=== PATIENT | male | born 1975 | race Caucasian/White ===

== ENCOUNTER 2017-12-18 22:29 | Inpatient (IN) | payer OTHER ==
[~2017-12-18] VITALS: Ht 165.1 cm; Wt 71.2 kg
[2017-12-18 22:44] VITALS: BP 133/91
--- NOTE | 2017-12-18 23:00 | NUR ---
42/M CAME IN ED, C/O 9/10 ACHING/STIFFNESS/TIGHTNESS L ELBOW PAIN AND L FOOT PAIN, NONRADIATING, X2 DAYS. PT REPORTS WAKING UP WITH THE PAIN 2 DAYS AGO, DENIES TRAUMA. PT DENIES CP, SOB, N/V/D, DYSURIA. PT REPORTS NOT BEING ABLE TO FULLY EXTEND OR BEND L ARM. SLIGHT REDNESS AND SLIGHT SWELLING NOTED ON MEDIAL ASPECT OF L ELBOW AND ALSO ON L FOOT. PT DENIES MED HX, RX. NKA. ER MADE AWARE.
[2017-12-19] MEDS ORDERED: NACL 0.9% 2,000 ML IV ONE (00:31)
[2017-12-19] MEDS ORDERED: KETOROLAC 30 MG/ML VIAL IVP ONE ×2 (00:35→04:20)
[2017-12-19] MEDS ORDERED: cefTRIAXone 1,000 MG VIAL ONE (00:43)
[2017-12-19 00:50] LABS: BASOPHILS # (AUTO) 0.1 K/uL (0.00-0.22); BASOPHILS % (AUTO) 0.6 % (0.0-2.0); EOSINOPHILS # (AUTO) 0.2 K/uL (0-0.4); EOSINOPHILS % (AUTO) 1.3 % (0.0-4.0); HEMATOCRIT 39.9 % (36-52); HEMOGLOBIN 13.7 g/dL (12.0-18.0); LYMPHOCYTES # (AUTO) 2.4 K/uL (2.0-11.5); LYMPHOCYTES % (AUTO) 20.4 % (20.5-51.1); MEAN CORPUSCULAR HEMOGLOBIN 32 pg (27-31); MEAN CORPUSCULAR HGB CONC 34 g/dL (33-37); MEAN CORPUSCULAR VOLUME 92.7 fL (80-94); MONOCYTES # (AUTO) 1.7 K/uL (0.8-1.0); MONOCYTES % (AUTO) 14.6 % (1.7-9.3); NEUTROPHILS # (AUTO) 7.4 K/uL (1.8-7.7); NEUTROPHILS % (AUTO) 63.1 % (42.2-75.2); PLATELET COUNT (AUTO) 218 K/uL (140-450); RED CELL DISTRIBUTION WIDTH 13.1 % (11.6-13.7); WHITE BLOOD COUNT (AUTO) 11.7 K/uL (4.8-10.8)
--- NOTE | 2017-12-19 01:00 | NUR ---
PT RESTING IN BED, LABS DRAWN, MEDS GIVEN WITH EDUCATION. PT REPORTS 9/10 PAIN AT THIS TIME. VSS. ALL NEEDS MET AT THIS TIME.
[2017-12-19 01:09] LABS: CARBON DIOXIDE 27.7 mmol/L (21-32); POTASSIUM 3.7 mmol/L (3.5-5.1)
[2017-12-19 01:13] LABS: ALBUMIN 3.1 g/dL (3.4-5.0); TOTAL BILIRUBIN 0.8 mg/dL (0.0-1.0)
[2017-12-19 01:14] LABS: PROTHROMBIN TIME 11.6 secs (10.8-13.4)
--- NOTE | 2017-12-19 02:47 | NUR ---
PT RESTING IN BED, PT REPORTS 8/10 L ELBOW PAIN AT THIS TIME. VSS, RR EVEN AND UNLABORED. ALL NEEDS MET AT THIS TIME.
[2017-12-19] MEDS ORDERED: NACL 0.9% 1,000 ML IV ONE (04:20)
[2017-12-19] MEDS ORDERED: ONDANSETRON 4 MG/2 ML VIAL IVP PRN (04:25)
[2017-12-19] MEDS ORDERED: ACETAMINOPHEN 325 MG TAB PO PRN (04:25)
[2017-12-19] MEDS ORDERED: HYDROcodone/APAP 7.5/325 MG 1 TAB PO PRN (04:25)
--- NOTE | 2017-12-19 04:50 | NUR ---
Patient will be admitted to care of DR. JAIMES. Admited to TELE. Will go to room 104A. Belongings list completed. Report to HENRRY CEJA AT BEDSIDE.
--- NOTE | 2017-12-19 04:50 | NUR ---
ADMITTED PT FROM ER. AAOX4. DX: LEFT ELBOW CELLULITIS. NO C/O PAIN AT THIS TIME. NO RESP DISTRESS NOTED. IV TO RIGHT HAND #20G WITH 1L NS BOLUS, INFUSING WELL. ORIENTED PT TO ROOM. PT'S FAMILY AT BEDSIDE. SKIN INTACT. SAFETY PRECAUTION IN PLACE. CALL LIGHT WITHIN REACH.
[2017-12-19 04:55] LABS: CHOL/HDL RATIO 3.6 (1-4.5); FREE T4 (FREE THYROXINE) 1.05 ng/dL (0.76-1.46); MAGNESIUM 2.1 mg/dL (1.8-2.4); PHOSPHORUS 3.6 mg/dL (2.5-4.9); THYROID STIMULATING HORMONE 2.51 uIU/mL (0.34-3.74)
[2017-12-19] MEDS ORDERED: KETOROLAC 15 MG/ML VIAL IVP PRN (04:55)
[2017-12-19 05:00] VITALS: BP 119/73
--- NOTE | 2017-12-19 06:00 | NUR ---
PT SLEEPING. NO S/S OF PAIN. NO S/S OF RESP DISTRESS. FAMILY AT BEDSIDE. CALL LIGHT WITHIN REACH.
[2017-12-19] MEDS: NACL 0.9% 1,000 ML IV SCH (06:05)
--- NOTE | 2017-12-19 07:10 | NUR ---
ENDORSED PT TO DAY SHIFT NURSE. PT IN STABLE CONDITION.
--- NOTE | 2017-12-19 07:11 | NUR ---
RECEIVED PT FROM PM NURSE AT THE BEDSIDE FOR THE CONTUINITY OF CARE. PT LYING ON HIS BED, FAMILY AT THE BEDSIDE. HAS THE CELLULITIS ON THE LFT ELBOW AND LFT FOOT. STATES PAIN 3-4 AT THIS TIME. NO SIGN OF DISTRESS. INFORMED HIM TO USE CALL LIGHT FOR ANY HELP. PT ROMANIAN SPEAKING. PLACED CALL LIGHT WITHIN PT REACH. BED AT LOWER POSITION. WILL CONTINUE TO MONITOR PT.
[2017-12-19 07:16] LABS: BASOPHILS # (AUTO) 0.1 K/uL (0.00-0.22); BASOPHILS % (AUTO) 0.8 % (0.0-2.0); EOSINOPHILS # (AUTO) 0.2 K/uL (0-0.4); EOSINOPHILS % (AUTO) 2.5 % (0.0-4.0); HEMATOCRIT 35.6 % (36-52); HEMOGLOBIN 12.1 g/dL (12.0-18.0); LYMPHOCYTES # (AUTO) 2.5 K/uL (2.0-11.5); LYMPHOCYTES % (AUTO) 25.2 % (20.5-51.1); MEAN CORPUSCULAR HEMOGLOBIN 32 pg (27-31); MEAN CORPUSCULAR HGB CONC 34 g/dL (33-37); MONOCYTES # (AUTO) 1.6 K/uL (0.8-1.0); MONOCYTES % (AUTO) 15.7 % (1.7-9.3); NEUTROPHILS # (AUTO) 5.7 K/uL (1.8-7.7); NEUTROPHILS % (AUTO) 55.8 % (42.2-75.2); PLATELET COUNT (AUTO) 182 K/uL (140-450); RED BLOOD CELL COUNT(AUTO) 3.78 MIL/uL (4.20-6.10); RED CELL DISTRIBUTION WIDTH 13.6 % (11.6-13.7); WHITE BLOOD COUNT (AUTO) 10.1 K/uL (4.8-10.8)
[2017-12-19 08:00] VITALS: BP 114/76
[2017-12-19 08:36] LABS: ANION GAP 11.4 (8-16); CARBON DIOXIDE 24.5 mmol/L (21-32); CREATININE 0.8 mg/dL (0.7-1.3); POTASSIUM 3.9 mmol/L (3.5-5.1)
--- NOTE | 2017-12-19 09:00 | NUR ---
ADMINISTERED MEDS ORDERED. ADMINISTERED TRAMADOL FOR PAIN TO PT. STATES THAT PAIN LEVEL IS 7/10. FIXED THE IVF INFUSION. NO SIGN OF DISTRESS. PT HAVING BREAKFAST AT THE BEDSIDE. FAMILY PRESENT. PLACED CALL LIGHT WITHIN PT REACH. ASKED HIM TO PRESS CALL LIGHT FOR ANY HELP. VERBALIZED UNDERSTANDING OF TEACHING. WILL CONTINUE TO MONITOR PT.
[2017-12-19] MEDS: DOCUSATE SODIUM 100 MG GELCAP PO SCH ×2 (09:10→21:21)
--- NOTE | 2017-12-19 10:41 | NUR ---
PATIENT HAS BEEN SCREENED AND CATEGORIZED MODERATE NUTRITION RISK. PATIENT WILL BE SEEN WITHIN 3-5 DAYS OF ADMISSION. 12/21/17 -12/23/[address]
--- NOTE | 2017-12-19 11:15 | NUR ---
CHECKED ON PT. STATES HAS NO PIAN. URINE SAMPLE COLLECTED AND TAKEN TO THE LAB. WILL CONTINUE TO MONITOR PT.
--- NOTE | 2017-12-19 13:00 | NUR ---
CHECKED ON THE PT. SLEEPING AT THIS TIME. WILL CONTINUE TO MONITOR PT.
[2017-12-19 13:07] LABS: BARBITURATE, URINE NEG. ng/ml (NEG <=200); BENZODIAZEPINE, URINE NEG. ng/mL (NEG <=200); CANNABINOID, URINE NEG. ng/mL (NEG <=50); COCAINE, URINE NEG. ng/mL (NEG <=300); OPIATE, URINE NEG. ng/mL (NEG <=2000); PHENCYCLIDINE SCREEN,URINE NEG. ng/mL (NEG <=25)
[2017-12-19 13:15] LABS: BILIRUBIN,URINE NEGATIVE (NEGATIVE); BLOOD, URINE NEGATIVE (NEGATIVE); LEUKOCYTE ESTERASE ,URINE NEGATIVE (NEGATIVE); NITRITE, URINE NEGATIVE (NEGATIVE); PH,URINE 6.5 (5.0-9.0); UGLUCOSE NEGATIVE (NEGATIVE)
[2017-12-19 13:16] LABS: APPEARANCE,URINE CLEAR (CLEAR); COLOR,URINE YELLOW (YELLOW)
[2017-12-19 13:17] LABS: RBC,URINE NONE SEEN /HPF (0-5); WBC,URINE 0-5 (RARE) /HPF (0-5)
--- NOTE | 2017-12-19 16:00 | NUR ---
CHECKED ON PT. STATES THAT HE HAS THE PAIN OF 4-5 . ASKED IF WANTED TO TAKE MEDS FOR PAIN. ADMINISTERED NORCO TO THE PT. VS NORMAL. NO SIGN OF DISTRESS. FIXED THE IVF IN PT. NO SIGN OF DISTYRESS. ASKED PT TO USE CALL LIGHT FOR ANY HELP . WILL CONTINUE TO MONITOR THE PT.
--- NOTE | 2017-12-19 18:00 | NUR ---
CHECKED ON PT. FAMILY AT THE BEDSIDE. PT EATING FOOD. IVF INFUSING WELL. NO SIGN OF DISTRESS. INFORMED TO PRESS CALL LIGHT FOR HELP. WILL CONTINUE TO MONITOR PT.
--- NOTE | 2017-12-19 19:05 | NUR ---
ENDORSED PT TO PM NURSE AT THE BEDSIDE. PT IN STABLE CONDITION.
--- NOTE | 2017-12-19 19:06 | NUR ---
RECEIVED PT FROM DAY SHIFT NURSE ERYN-RN AT THE BEDSIDE. PT LYING ON HIS BED, FAMILY AT THE BEDSIDE. AOX4-WOLOF SPEAKING, ON ROOM AIR AND WITH IV RIGHT HAND 20G. HAS THE CELLULITIS ON THE LFT ELBOW AND LFT FOOT. DISCUSSED PLAN OF CARE AND PT VERBALIZED UNDERSTANDING. NO S/S OF RESPIRATORY OF DISTRESS OR DISCOMFORT. BED AT LOWEST POSITION, BED BREAKS ON, BOTH SIDE RAILS UP. BED SIDE TABLE AND CALL LIGHT ARE WITHIN REACH. WILL CONTINUE TO MONITOR.
[2017-12-19 20:00] VITALS: BP 121/78
--- NOTE | 2017-12-19 20:00 | NUR ---
VITAL SIGNS TAKEN AND TOLERATED WELL. NO S/S OF RESPIRATORY DISTRESS OR DISCOMFORT NOTED AT THIS TIME. WILL CONTINUE TO MONITOR.
--- NOTE | 2017-12-19 21:25 | NUR ---
SCHEDULED MEDICATION COLACE GIVEN AND TOLERATED WELL. NO S/S OF RESPIRATORY DISTRESS OR DISCOMFORT NOTED AT THIS TIME. WILL CONTINUE TO MONITOR.
--- NOTE | 2017-12-19 22:00 | NUR ---
PT RESTING IN BED. NO S/S OF RESPIRATORY DISTRESS OR DISCOMFORT NOTED AT THIS TIME. WILL CONTINUE TO MONITOR.
[2017-12-20] VITALS: BP 133/91
--- NOTE | 2017-12-20 | NUR ---
VITAL SIGNS TAKEN AND TOLERATED WELL. NO S/S OF RESPIRATORY DISTRESS OR DISCOMFORT NOTED AT THIS TIME. WILL CONTINUE TO MONITOR.
[2017-12-20] MEDS: NACL 0.9% 1,000 ML IV SCH ×2 (00:20→06:41)
--- NOTE | 2017-12-20 00:25 | NUR ---
SCHEDULED MEDICATION ROCEPHIN GIVEN AND TOLERATED WELL. NO S/S OF RESPIRATORY DISTRESS OR DISCOMFORT NOTED AT THIS TIME. WILL CONTINUE TO MONITOR.
--- NOTE | 2017-12-20 02:00 | NUR ---
PT CONTINUES TO SLEEP. NO S/S OF RESPIRATORY DISTRESS OR DISCOMFORT NOTED AT THIS TIME. WILL CONTINUE TO MONITOR.
--- NOTE | 2017-12-20 04:00 | NUR ---
PT CONTINUES TO SLEEP. NO S/S OF RESPIRATORY DISTRESS OR DISCOMFORT NOTED AT THIS TIME. WILL CONTINUE TO MONITOR.
--- NOTE | 2017-12-20 06:00 | NUR ---
PT CONTINUES TO SLEEP. NO S/S OF RESPIRATORY DISTRESS OR DISCOMFORT NOTED AT THIS TIME. WILL CONTINUE TO MONITOR.
--- NOTE | 2017-12-20 06:45 | NUR ---
NEW BAG OF IVF HUNG. CHARGE NURSE HAN INSERTED A NEW IV LINE- RIGHT WRIST #20G BECAUSE OLD LINE KEPT CREATING "HIGH PRESSURE" ALARM TO GO OFF. PT TOLERATED WELL. NO S/S OF RESPIRATORY DISTRESS OR DISCOMFORT NOTED AT THIS TIME. WILL CONTINUE TO MONITOR.
--- NOTE | 2017-12-20 07:14 | NUR ---
ENDORSED PT CARE TO DAY SHIFT NURSE ZULEMA-RN FOR CONTINUITY OF CARE.
--- NOTE | 2017-12-20 07:15 | NUR ---
RECEIVED REPORT FROM KNUCKLE STRAP SEWER NURSE AT BEDSIDE FOR CONTINUITY OF CARE. PT LYING ON HIS BED, AOX4-AFGHAN SPEAKING BUT DOES UNDERSTAND DANISH, ON ROOM AIR AND WITH IV RIGHT FOREARM 20G, INFUSING NS AT 50 ML/HR. HAS THE CELLULITIS ON THE LFT ELBOW AND LFT FOOT. DISCUSSED PLAN OF CARE AND PT VERBALIZED UNDERSTANDING. NO S/S OF RESPIRATORY OF DISTRESS OR DISCOMFORT. UPDATED BOARD, SAFETY PRECAUTION IN PLACE, CALL LIGHT WITHIN REACH, WILL CONTINUE TO MONITOR PATIENT.
[2017-12-20 07:41] LABS: BASOPHILS # (AUTO) 0.1 K/uL (0.00-0.22); BASOPHILS % (AUTO) 0.6 % (0.0-2.0); EOSINOPHILS # (AUTO) 0.5 K/uL (0-0.4); EOSINOPHILS % (AUTO) 5.6 % (0.0-4.0); HEMATOCRIT 36.9 % (36-52); HEMOGLOBIN 12.4 g/dL (12.0-18.0); LYMPHOCYTES # (AUTO) 2.3 K/uL (2.0-11.5); LYMPHOCYTES % (AUTO) 27.8 % (20.5-51.1); MEAN CORPUSCULAR HEMOGLOBIN 32 pg (27-31); MEAN CORPUSCULAR HGB CONC 34 g/dL (33-37); MONOCYTES # (AUTO) 1.1 K/uL (0.8-1.0); MONOCYTES % (AUTO) 12.6 % (1.7-9.3); NEUTROPHILS # (AUTO) 4.5 K/uL (1.8-7.7); NEUTROPHILS % (AUTO) 53.4 % (42.2-75.2); PLATELET COUNT (AUTO) 211 K/uL (140-450); RED BLOOD CELL COUNT(AUTO) 3.93 MIL/uL (4.20-6.10); RED CELL DISTRIBUTION WIDTH 13.3 % (11.6-13.7); WHITE BLOOD COUNT (AUTO) 8.4 K/uL (4.8-10.8)
[2017-12-20 08:00] VITALS: BP 128/82
[2017-12-20 08:23] LABS: ANION GAP 9.2 (8-16); CARBON DIOXIDE 28.4 mmol/L (21-32); CREATININE 0.8 mg/dL (0.7-1.3); POTASSIUM 3.6 mmol/L (3.5-5.1)
[2017-12-20 08:40] LABS: MAGNESIUM 2.2 mg/dL (1.8-2.4); PHOSPHORUS 2.8 mg/dL (2.5-4.9)
[2017-12-20] MEDS: DOCUSATE SODIUM 100 MG GELCAP PO SCH (09:00)
--- NOTE | 2017-12-20 09:00 | NUR ---
PATIENT REFUSED COLACE STATING THAT "I DO NOT NEED IT". PER PATIENT. LAST BOWEL MOVEMENT WAS LAST PM. WILL CONTINUE TO MONITOR PATIENT.
--- NOTE | 2017-12-20 09:22 | NUR ---
DISCHARGE ORDER IN, PATIENT AWARE. PATIENT RESTING IN BED, NO SIGNS OF DISTRESS OR SOB NOTED ON ROOM AIR. WILL CONTINUE TO MONITOR PATIENT.
[2017-12-20] MEDS ORDERED: IBUP-2213 PO (10:17)
[2017-12-20] MEDS ORDERED: LACT1.4C PO (10:17)
[2017-12-20] MEDS ORDERED: CEPH-1019 PO (10:17)
--- NOTE | 2017-12-20 10:30 | NUR ---
DISCHARGE INSTRUCTION AND EDUCATION GIVEN TO PATIENT ABOUT MEDICATIONS AND DOCTOR FOLLOW UP APPOINTMENT. PATIENT VERBALIZED UNDERSTANDING. IV REMOVED, IV CATHETER INTACT, MINIMAL BLOOD NOTED. ID BANDS CUT. PATIENT IS GETTING DRESSED AND IS WAITING FOR HIS BROTHER IN LAW TO COME PICK HIM UP AND TAKE HIM HOME. WILL CONTINUE TO MONITOR.
--- NOTE | 2017-12-20 11:40 | NUR ---
PATIENT AMBULATED OFF FLOOR ON STEADY GAIT WITH TWO FAMILY MEMBERS AND RN AT SIDE. PATIENT TOOK ALL HIS BELONGINGS WITH HIM. PATIENT IN STABLE CONDITION.
== END 2017-12-20 11:40 | disposition home or self-care (01) | DRG 872 ==
LOC: MED 22:29 → MTU 12-19 04:27
PROVIDERS: ADMIT General Practice; ATTEND General Practice
DX: A41.9 Sepsis, unspecified organism (principal); L03.114 Cellulitis of left upper limb; E87.1 Hypo-osmolality and hyponatremia; E44.1 Mild protein-calorie malnutrition; E11.65 Type 2 diabetes mellitus with hyperglycemia; F10.99 Alcohol use, unspecified with unspecified alcohol-induced disorder; L03.032 Cellulitis of left toe; R74.8 Abnormal levels of other serum enzymes; Z68.26 Body mass index [BMI] 26.0-26.9, adult; M10.9 Gout, unspecified; Y90.9 Presence of alcohol in blood, level not specified
CPT/HCPCS: 36415; 71045; 73070; 73630; 76705; 80048; 80053; 80305; 81001; 82150; 83036; 83605; 83690; 83735; 83880; 84100; 84439; 84443; 84484; 84550; 85025; 85610; 85651; 86140; 87040; 87081; 93005; 96365; 96375; 99285; J0696; J1885; J7030; J7060; Q0092

== ENCOUNTER 2024-01-31 18:24 | Emergency (ER) | payer MEDICAID, OTHER ==
[~2024-01-31] VITALS: Ht 162.6 cm; Wt 66.7 kg
[~2024-01-31 18:24] MED LIST: CEPH-1019 PO; IBUP-2213 PO; LACT1.4C PO
[2024-01-31 18:36] VITALS: BP 154/85; PULSE 74; RESP 16; TEMP 97.1; O2SAT 98
[2024-01-31] MEDS: IBUPROFEN 600 MG TAB PO ONE (19:16)
[2024-01-31] MEDS ORDERED: CLIN150C1 PO (20:41)
[2024-01-31] MEDS ORDERED: BACI-418 TP (20:41)
== END 2024-01-31 20:58 | disposition home or self-care (01) ==
LOC: MED 18:24
DX: S62.612A Displaced fracture of proximal phalanx of right middle finger, initial encounter for closed fracture (principal); S00.81XA Abrasion of other part of head, initial encounter; L03.90 Cellulitis, unspecified; Z79.899 Other long term (current) drug therapy; W18.39XA Other fall on same level, initial encounter; Y93.89 Activity, other specified; Y92.89 Other specified places as the place of occurrence of the external cause; Y99.8 Other external cause status
CPT/HCPCS: 73140; 99283